=== PATIENT | female | born 1950 | race Caucasian/White ===

== ENCOUNTER 2019-08-17 09:09 | Outpatient (CLI) | payer MEDICARE | END 2019-08-17 23:59 | disposition home or self-care (01) | LOC: RAD 09:09 | PROVIDERS: ATTEND Physician Assistant | DX: R56.9 Unspecified convulsions (principal); R55 Syncope and collapse; Z87.891 Personal history of nicotine dependence | CPT/HCPCS: 95819 ==

== ENCOUNTER 2019-12-21 10:26 | Outpatient (CLI) | payer MEDICARE ==
[2019-12-21] VITALS (22 sets, daily range): BP systolic 106–160; BP diastolic 65–110
== END 2019-12-21 23:59 | disposition home or self-care (01) ==
LOC: CARD DIAG 10:26
PROVIDERS: ATTEND Psychiatry & Neurology Neurology
DX: R55 Syncope and collapse (principal); R41.82 Altered mental status, unspecified
CPT/HCPCS: 93660